=== PATIENT | male | born 1990 | race Caucasian/White ===

== ENCOUNTER 2017-11-04 22:12 | Emergency (ER) | payer OTHER, SELFPAY ==
[2017-11-04 23:16] LABS: Absolute Lymphocytes (CBC) 3.8 K/uL (0.7-4.9); Absolute Monocytes 1.2 K/uL (0.1-1.3); Absolute Neutrophil 5.9 K/uL (1.8-8.0); Basophils % 1.5 % (0-1.3); Eosinophils % 5.3 % (0-4.4); Hematocrit 39.8 % (39.6-49.0); Lymphocytes % 32.4 % (15.3-44.8); MCV 91.3 fL (80-100); MPV 8.6 fL (7.6-11.3); Monocytes % 10.6 % (3.3-12.3); RBC Red Blood Cell Count 4.36 M/uL (4.33-5.43)
[2017-11-04] MEDS ORDERED: NA CHLORIDE 0.9% 1,000 ML ONE (23:20)
[2017-11-04] MEDS ORDERED: ONDANSETRON 4 MG/2 ML VIAL ONE (23:20)
[2017-11-04] MEDS ORDERED: MORPHINE 4 MG/ML SYR ONE (23:20)
[2017-11-04 23:35] LABS: Potassium 3.6 mEq/L (3.6-5.0)
[2017-11-04 23:36] LABS: Glomerular Filtration Rate > 60 mL/min (>60)
[2017-11-04 23:42] LABS: Albumin 4.2 g/dL (3.2-5.5); Bilirubin Direct 0.1 mg/dL (0-0.2); Bilirubin Total 0.4 mg/dL (0.3-1.2); Protein, Total 7.3 g/dL (6.0-8.3)
[2017-11-05 00:07] LABS: Urine Blood NEGATIVE (NEG); Urine Glucose NEGATIVE (NEG); Urine Protein NEGATIVE (NEG); Urine Specific Gravity 1.015 (1.005-1.030)
[2017-11-05 00:11] LABS: Urine Bacteria <20 /HPF (NONE SEEN); Urine Culture Reflex Order NOT NEEDED; Urine RBC NONE SEEN /HPF (NONE SEEN)
--- NOTE | 2017-11-05 02:02 | EDPHYS ---
Physician Documentation [facility] Name: Louis Lagunas Jr Age: 27 yrs Sex: Male : 1990 Arrival Date: 11/04/2017 Time: 22:17 Bed 20 Private MD: ED Physician Viet Waite HPI: 11/04 22:36 This 27 yrs old Male presents to ER via Unassigned with complaints of cp Abdominal Pain. 22:36 The patient presents with abdominal pain right lower quadrant. Onset: The cp symptoms/episode began/occurred yesterday, and became worse today. The symptoms do not radiate. Associated signs and symptoms: Pertinent negatives: blood in stools, chest pain, constipation, diarrhea, fever, testicular pain, vomiting. Historical: - Allergies: 22:40 No Known Allergies; bp - Home Meds: 22:40 None [Active]; bp - PMHx: 22:40 None; bp - PSHx: 22:40 None; bp - Immunization history:: Adult Immunizations up to date. - Social history:: Smoking status: Patient uses tobacco products, smokes one-half pack cigarettes per day. ROS: 22:37 Eyes: Negative for injury, pain, redness, and discharge, ENT: Negative for injury, cp pain, and discharge. 22:37 Constitutional: Negative for body aches, chills, fever, poor PO intake. 22:37 Cardiovascular: Negative for chest pain, edema, palpitations. 22:37 Respiratory: Negative for cough, shortness of breath, wheezing. 22:37 Abdomen/GI: Positive for abdominal pain, of the right lower quadrant, Negative for vomiting, diarrhea, constipation, black/tarry stool, rectal bleeding. 22:37 Back: Negative for radiated pain. 22:37 : Negative for urinary symptoms, testicular pain 22:37 Skin: Negative for cellulitis, rash. 22:37 All other systems are negative. Exam: 22:45 Constitutional: The patient appears in no acute distress, alert, awake, non-toxic, well cp developed, well nourished. 22:45 Head/Face: Normocephalic, atraumatic. cp 22:45 Eyes: Pupils equal round and reactive to light, extra-ocular motions intact. Lids and cp lashes normal. Conjunctiva and sclera are non-icteric and not injected. Cornea within normal limits. Periorbital areas with no swelling, redness, or edema. ENT: Nares patent. No nasal discharge, no septal abnormalities noted. Tympanic membranes are normal and external auditory canals are clear. Oropharynx with no redness, swelling, or masses, exudates, or evidence of obstruction, uvula midline. Mucous membranes moist. Chest/axilla: Normal chest wall appearance and motion. Nontender with no deformity. No lesions are appreciated. Cardiovascular: Regular rate and rhythm with a normal S1 and S2. No gallops, murmurs, or rubs. Normal PMI, no JVD. No pulse deficits. Respiratory: Lungs have equal breath sounds bilaterally, clear to auscultation and percussion. No rales, rhonchi or wheezes noted. No increased work of breathing, no retractions or nasal flaring. 22:45 Abdomen/GI: Inspection: abdomen appears normal, Bowel sounds: active, all quadrants, Palpation: soft, in all quadrants, moderate abdominal tenderness, in the right lower quadrant, rebound tenderness, is not appreciated, voluntary guarding, is not appreciated, involuntary guarding, is not appreciated. 22:45 Back: pain, is absent, ROM is normal. 22:45 Skin: cellulitis, is not appreciated, no rash present. 11/05 01:58 : Male external genitalia: Circumcision noted. tenderness, of the right testicle is cp noted, of the epididymis area, Sexual behavior: the patient is sexually active, and reports a single partner. Vital Signs: 11/04 22:20 BP 152 / 86; Pulse 59; Resp 18; Temp 98; Pulse Ox 98% on R/A; Weight 97.52 kg; Height 5 bp ft. 10 in. (177.80 cm); 23:45 BP 130 / 75; Pulse 65; Resp 16; Pulse Ox 97% ; bp 22:20 Body Mass Index 30.85 (97.52 kg, 177.80 cm) bp MDM: 22:33 Patient medically screened. cp 23:00 Differential diagnosis: appendicitis, cholecystitis, Cholelithiasis, diverticulitis, cp gastritis, pancreatitis, Ureterolithiasis, urinary tract infection. 11/05 01:59 Data reviewed: vital signs, nurses notes, radiologic studies, vRad report of CT cp abdomen/pelvis negative for acute appendicitis. 11/04 22:39 Order name: Amylase, Serum; Complete Time: 01:32 cp 11/04 22:39 Order name: Basic Metabolic Panel; Complete Time: 01:32 cp 11/05 01:32 Interpretation: Normal except: GFR 78. cp 11/04 22:39 Order name: CBC with Diff; Complete Time: 23:35 cp 11/05 01:48 Interpretation: Normal except: WBC 11.6; HGB 13.5; EOSINOPHIL % 5.3; BASO% 1.5; EOSA cp 0.6. 11/04 22:39 Order name: Creatinine for Radiology; Complete Time: 01:32 cp 11/04 22:39 Order name: Hepatic Function; Complete Time: 01:32 cp 11/04 22:39 Order name: Lipase; Complete Time: 01:32 cp 11/04 22:39 Order name: Urine Microscopic Only; Complete Time: 01:32 cp 11/04 22:39 Order name: CT Abd/Pelvis - W/Contrast cp 11/04 22:47 Order name: Urine Dipstick--Ancillary (enter results); Complete Time: 01:32 em1 11/05 01:49 Interpretation: Reviewed. cp 11/04 22:39 Order name: IV Saline Lock; Complete Time: 22:44 cp 11/04 22:39 Order name: Labs collected and sent; Complete Time: 22:48 cp 11/04 22:39 Order name: Urine Dipstick-Ancillary (obtain specimen); Complete Time: 22:44 cp Administered Medications: 11/04 23:00 Drug: NS 0.9% 1000 ml Route: IV; Rate: 1 bolus; Site: right antecubital; bp 11/05 02:27 Follow up: IV Status: Completed infusion bp 11/04 23:00 Drug: Zofran 4 mg Route: IVP; Site: right antecubital; bp 23:14 Follow up: Response: Pain is decreased bp 23:00 Drug: morphine 2 mg Route: IVP; Site: right antecubital; bp 23:14 Follow up: Response: Pain is decreased bp 11/05 02:15 Drug: Rocephin - (cefTRIAXone) 1 grams Route: IVPB; Infused Over: 30 mins; Site: right bp antecubital; 02:27 Follow up: IV Status: Completed infusion bp 02:15 Drug: Zithromax 1 grams Route: PO; bp 02:27 Follow up: Response: Medication administered at discharge. bp 02:15 Drug: TORadol 30 mg Route: IVP; Site: right antecubital; bp 02:27 Follow up: Response: Medication administered at discharge. bp Disposition: 04:30 Co-signature as Attending Physician, Viet Waite MD I agree with the assessment and tw4 plan of care. Disposition: 11/05/17 02:02 Discharged to Home. Impression: Lower abdominal pain, unspecified, Epididymitis - Right. - Condition is Stable. - Discharge Instructions: Abdominal Pain, Adult, Epididymitis. - Prescriptions for Naprosyn 500 mg Oral Tablet - take 1 tablet by ORAL route 2 times per day take with food; 30 tablet. Doxycycline Hyclate 100 mg Oral Tablet - take 1 tablet by ORAL route every 12 hours; 20 tablet. Tramadol 50 mg Oral Tablet - take 1 tablet by ORAL route every 8 hours as needed; 12 tablet. - Medication Reconciliation Form, Thank You Letter, Antibiotic Education, Prescription Opioid Use, Work release form form. - Follow up: Amish Salmeron MD; When: 2 - 3 days; Reason: if pain continues right lower abdomen. - Problem is new. - Symptoms have improved. Signatures: Dispatcher [employer] EDMS Amadou Mead PA PA cp Nico Garibay, ARTURO RN bp Viet Waite MD MD tw4 Corrections: (The following items were deleted from the chart) 01:48 [id number] 23:35 Normal except: WBC 11.6; HGB 13.5; EOSINOPHIL % 5.3; BASO% 1.5. cp cp
--- NOTE | 2017-11-05 02:02 | ER ---
Nurse's Notes [facility] Name: Louis Lagunas Jr Age: 27 yrs Sex: Male : 1990 Arrival Date: 11/04/2017 Time: 22:17 Bed 20 Private MD: Diagnosis: Lower abdominal pain, unspecified;Epididymitis-Right Presentation: 11/04 22:20 Presenting complaint: Patient states: IT STARTED HURTING BY MY BELLYBUTTON YESTERDAY bp AND THEN MOVED OVER TO THE RIGHT TODAY. Transition of care: patient was not received from another setting of care. Onset of symptoms was November 03, 2017. Care prior to arrival: None. 22:20 Method Of Arrival: Ambulatory bp 22:20 Acuity: POOL 3 bp Triage Assessment: 22:20 General: Appears distressed, uncomfortable, Behavior is calm, cooperative, appropriate bp for age. Pain: Complains of pain in umbilical area Pain radiates to right lower quadrant. EENT: No deficits noted. Neuro: Level of Consciousness is awake, alert, obeys commands, Oriented to person, place, time, situation, Appropriate for age. Cardiovascular: No deficits noted. Respiratory: Airway is patent Respiratory effort is even, unlabored, Respiratory pattern is regular, symmetrical. GI: Abdomen is non-distended, Abd is soft X 4 quads Abdomen is tender to palpation in umbilical area and right lower quadrant Abdomen has rebound tenderness in right lower quadrant Reports nausea. : No signs and/or symptoms were reported regarding the genitourinary system. Derm: No deficits noted. Musculoskeletal: Circulation, motion, and sensation intact. Range of motion: intact in all extremities. Historical: - Allergies: 22:40 No Known Allergies; bp - Home Meds: 22:40 None [Active]; bp - PMHx: 22:40 None; bp - PSHx: 22:40 None; bp - Immunization history:: Adult Immunizations up to date. - Social history:: Smoking status: Patient uses tobacco products, smokes one-half pack cigarettes per day. Screenin:47 Abuse screen: Denies threats or abuse. Denies injuries from another. Nutritional bp screening: No deficits noted. Tuberculosis screening: No symptoms or risk factors identified. Fall Risk None identified. Assessment: 22:20 GI: Bowel sounds present X 4 quads. bp 22:46 Reassessment: PT DRINKING PO CONTRAST. PT STATES LAST PO INTAKE 2029. bp 23:00 Reassessment: PO CONTRAST COMPLETED, CT NOTIFIED. bp 11/05 01:00 Reassessment: VS STABLE. AWAITING CT RESULTS. bp 02:28 Reassessment: PT D/C HOME AMBULATORY, DX WITH EPIDIDYMITIS. bp Vital Signs: 11/04 22:20 BP 152 / 86; Pulse 59; Resp 18; Temp 98; Pulse Ox 98% on R/A; Weight 97.52 kg; Height 5 bp ft. 10 in. (177.80 cm); 23:45 BP 130 / 75; Pulse 65; Resp 16; Pulse Ox 97% ; bp 22:20 Body Mass Index 30.85 (97.52 kg, 177.80 cm) bp ED Course: 22:17 Patient arrived in ED. al2 22:20 Arm band placed on. bp 22:23 Nico Garibay, ARTURO is Primary Nurse. bp 22:32 Amadou Mead PA is PHCP. cp 22:32 Viet Waite MD is Attending Physician. cp 22:40 Triage completed. bp 22:40 Inserted saline lock: 18 gauge in right antecubital area, using aseptic technique. bp Blood collected. 22:43 Urine collected: clean catch specimen, clear. dh3 22:47 Patient has correct armband on for positive identification. Placed in gown. Bed in low bp position. Call light in reach. Side rails up X2. 22:49 Oral contrast given. jg1 11/05 01:21 CT Abd/Pelvis - W/Contrast In Process Unspecified. EDMS 02:01 Amish Salmeron MD is Referral Physician. cp 02:28 No provider procedures requiring assistance completed. IV discontinued, intact, bp bleeding controlled, No redness/swelling at site. Pressure dressing applied. Administered Medications: 11/04 23:00 Drug: NS 0.9% 1000 ml Route: IV; Rate: 1 bolus; Site: right antecubital; bp 11/05 02:27 Follow up: IV Status: Completed infusion bp 11/04 23:00 Drug: Zofran 4 mg Route: IVP; Site: right antecubital; bp 23:14 Follow up: Response: Pain is decreased bp 23:00 Drug: morphine 2 mg Route: IVP; Site: right antecubital; bp 23:14 Follow up: Response: Pain is decreased bp 04/07 02:15 Drug: Rocephin - (cefTRIAXone) 1 grams Route: IVPB; Infused Over: 30 mins; Site: right bp antecubital; 02:27 Follow up: IV Status: Completed infusion bp 02:15 Drug: Zithromax 1 grams Route: PO; bp 02:27 Follow up: Response: Medication administered at discharge. bp 02:15 Drug: TORadol 30 mg Route: IVP; Site: right antecubital; bp 02:27 Follow up: Response: Medication administered at discharge. bp Outcome: 02:02 Discharge ordered by MD. cp 02:46 Discharged to home bp 02:46 Condition: stable 02:46 Discharge instructions given to patient, Instructed on discharge instructions, follow up and referral plans. medication usage, Demonstrated understanding of instructions, follow-up care, medications, Prescriptions given X 3. 02:51 Patient left the ED. bp Signatures: Dispatcher [employer] EDIndiana King jg1 Amadou Mead PA PA cp Herrera, Deanna 3 Nico Garibay RN RN bp Nhung Braga2 Corrections: (The following items were deleted from the chart) 02:29 04/06 23:51 Reassessment: bp bp
[2017-11-05] MEDS ORDERED: KETOROLAC 30 MG/ML INJ ONE (02:35)
[2017-11-05] MEDS ORDERED: CEFTRIAXONE/SWI 1gm 1 GM/10 ML SYR ONE (02:35)
[2017-11-05] MEDS ORDERED: AZITHROMYCIN 250 MG TAB ONE (02:35)
--- NOTE | 2017-11-05 11:25 | RAD REPORT ---
EXAM DESCRIPTION: CTAbdomen Pelvis W Contrast - 11/05/2017 6:47 am CLINICAL HISTORY: Abdominal pain. COMPARISON: None. TECHNIQUE: Biphasic CT imaging of the abdomen and pelvis was performed with 100 ml non-ionic IV cont rast. All CT scans are performed using dose optimization technique as appropriate and may include automated exposure control or mA/KV adjustment according to patient size. FINDINGS: The lung bases are clear. The liver demonstrates diffuse fatty infiltration. The spleen, pancreas, adrenal glands and kidneys a re within normal limits. No bowel obstruction, free air, free fluid or abscess. The appendix is normal. No evidence of signi ficant lymphadenopathy. No suspicious bony findings. Urinary bladder wall thickening is seen. IMPRESSION: Thickening of the urinary bladder wall could indicate cystitis. Diffuse fatty liver.
== END 2017-11-05 02:51 | disposition home or self-care (01) ==
LOC: ER 22:12
DX: N45.1 Epididymitis (principal); F17.210 Nicotine dependence, cigarettes, uncomplicated
CPT/HCPCS: 36415; 74177; 80048; 80076; 81003; 81015; 82150; 83690; 85025; 96361; 96374; 96375; 99284; J0696; J2405; J7030; Q9967

== ENCOUNTER 2018-07-25 09:25 | Emergency (ER) | payer SELFPAY ==
[2018-07-25] MEDS ORDERED: NA CHLORIDE 0.9% 1,000 ML ONE (10:10)
[2018-07-25] MEDS ORDERED: ONDANSETRON 4 MG/2 ML VIAL ONE (10:10)
[2018-07-25] MEDS ORDERED: KETOROLAC 30 MG/ML INJ ONE (10:10)
[2018-07-25 10:23] LABS: Absolute Lymphocytes (CBC) 2.3 K/uL (0.7-4.9); Absolute Monocytes 0.9 K/uL (0.1-1.3); Absolute Neutrophil 6.6 K/uL (1.8-8.0); Eosinophils % 4.9 % (0-4.4); Hematocrit 44.7 % (39.6-49.0); MCH 31.7 pg (27.0-35.0); MCV 91.1 fL (80-100); Monocytes % 8.4 % (3.3-12.3); RBC Red Blood Cell Count 4.91 M/uL (4.33-5.43)
--- NOTE | 2018-07-25 10:34 | RAD REPORT ---
EXAM DESCRIPTION: CT - Stone Protocol - 07/25/2018 10:19 am CLINICAL HISTORY: Abdominal pain. Right flank pain COMPARISON: October 2017 TECHNIQUE: Computed axial tomography of the abdomen pelvis was obtained without oral or IV contrast. Lack of IV and oral contrast limits evaluation of solid organs, bowel, and vessels. Coronal reformat roosevelt images were obtained and reviewed. All CT scans are performed using dose optimization technique as appropriate and may include automated exposure control or mA/KV adjustment according to patient size. FINDINGS: A renal calculus is not seen. An ureteral calculus is not noted. A bladder calculus is not present. The liver, spleen, pancreas and adrenals appear grossly normal There is no evidence of diverticulitis. The appendix appears normal Small right inguinal hernia suspected IMPRESSION: Negative for a genitourinary calculus Small right inguinal hernia is suspected
[2018-07-25 10:39] LABS: ALT/SGPT 33 U/L (12-78); AST/SGOT 15 U/L (15-37); Albumin 3.9 g/dL (3.4-5.0); Alkaline Phosphatase 83 U/L (45-117); BUN Blood Urea Nitrogen 14 mg/dL (7-18); Bicarbonate 26 mmol/L (21-32); Bilirubin Direct < 0.1 mg/dL (0-0.2); Bilirubin Total 0.3 mg/dL (0.2-1.0); Glucose Level 97 mg/dL (74-106); Lipase 149 U/L (73-393); Potassium 4.3 mmol/L (3.5-5.1); Protein, Total 7.8 g/dL (6.4-8.2); Sodium Level 139 mmol/L (136-145)
--- NOTE | 2018-07-25 11:31 | RAD REPORT ---
EXAM DESCRIPTION: US - Scrotum Testicles - 07/25/2018 11:20 am CLINICAL HISTORY: Scrotal pain COMPARISON: None FINDINGS: Right testicle measures 4.6 x 2.1 x 3.4 centimeters. Echotexture is homogeneous. Normal bl ood flow Left testicle measures 4.7 x 2.4 x 3.2 centimeters. Echotexture is homogeneous. Normal blood flow The epididymides are normal in size and echotexture. Normal blood flow is seen. A 4 millimeter left s permatocele IMPRESSION: A 4 millimeter left spermatocele. Otherwise unremarkable exam
--- NOTE | 2018-07-25 13:13 | ER ---
Nurse's Notes [facility] Name: Louis Lagunas Jr Age: 28 yrs Sex: Male : 1990 Arrival Date: 07/25/2018 Time: 09:28 Bed 15 Private MD: Diagnosis: Right testicle pain;Inguinal hernia-right Presentation: 07/25 09:42 Presenting complaint: Patient states: right testicular pain, right flank, right back sv pain started 2 days ago. Transition of care: patient was not received from another setting of care. Onset of symptoms was July 23, 2018. Risk Assessment: Do you want to hurt yourself or someone else? Patient reports no desire to harm self or others. Initial Sepsis Screen: Does the patient meet any 2 criteria? No. Patient's initial sepsis screen is negative. Does the patient have a suspected source of infection? No. Patient's initial sepsis screen is negative. Care prior to arrival: None. 09:42 Method Of Arrival: Ambulatory sv 09:42 Acuity: POOL 3 sv Historical: - Allergies: 09:50 No Known Allergies; sv - Home Meds: 09:50 None [Active]; sv - PMHx: 09:50 None; sv - PSHx: 09:50 right leg; sv - Immunization history:: Flu vaccine is not up to date. - Social history:: Smoking status: Patient uses tobacco products, smokes one-half pack cigarettes per day. - Ebola Screening: : No symptoms or risks identified at this time. Screenin:10 Abuse screen: Denies threats or abuse. Denies injuries from another. Nutritional sv screening: No deficits noted. Tuberculosis screening: No symptoms or risk factors identified. Fall Risk None identified. Vital Signs: 09:50 BP 148 / 93; Pulse 71; Resp 20; Temp 98; Pulse Ox 97% ; Weight 95.25 kg; Height 5 ft. sv 10 in. (177.80 cm); Pain 8/10; 12:41 BP 125 / 65; Pulse 70; Resp 16; Pulse Ox 99% ; sv 13:32 BP 122 / 68; Pulse 72; Resp 18; Pulse Ox 99% ; sv 09:50 Body Mass Index 30.13 (95.25 kg, 177.80 cm) sv ED Course: 09:28 Patient arrived in ED. as 09:41 Page, Amadou, PA is PHCP. cp 09:42 Mary Ellen Kerr MD is Attending Physician. cp 09:42 Arm band placed on Patient placed in an exam room, on a stretcher. sv 09:48 Alexandra Toscano, ARTURO is Primary Nurse. sv 09:49 Triage completed. sv 10:10 Patient has correct armband on for positive identification. Placed in gown. Bed in low sv position. Pulse ox on. NIBP on. Door closed. Head of bed elevated. 10:10 Initial lab(s) drawn, by me, sent to lab. Inserted saline lock: 20 gauge in left sv antecubital area, using aseptic technique. Blood collected. Flushed left antecubital with 5 ml normal saline. 10:19 CT Stone Protocol In Process Unspecified. EDMS 10:20 CT completed. Patient tolerated procedure well. Patient moved back from CT. bq 11:18 Ultrasound completed. Patient tolerated well. sg3 11:20 US Scrotum Testicles In Process Unspecified. EDMS 13:10 Wendy Bahena MD is Referral Physician. cp 13:31 No provider procedures requiring assistance completed. IV discontinued, intact, sv bleeding controlled, No redness/swelling at site. Pressure dressing applied. Administered Medications: 10:10 Drug: NS 0.9% 1000 ml Route: IV; Rate: 1 bolus; Site: left antecubital; sv 11:00 Follow up: Response: No adverse reaction; IV Status: Completed infusion; IV Intake: sv 1000ml 10:10 Drug: Zofran 4 mg Route: IVP; Site: left antecubital; sv 10:30 Follow up: Response: No adverse reaction sv 10:11 Drug: TORadol 30 mg Route: IVP; Site: left antecubital; sv 10:30 Follow up: Response: No adverse reaction sv 10:19 CANCELLED (Duplicate Order): TORadol 30 mg IM once sv 13:29 Drug: Rocephin - (cefTRIAXone) 1 grams Route: IVPB; Infused Over: 30 mins; Site: left sv antecubital; 13:31 Follow up: Response: No adverse reaction; IV Status: Completed infusion; IV Intake: sv 10ml ; given IVP per pharmacy 13:31 Drug: Zithromax 1 grams Route: PO; sv 13:31 Follow up: Response: Medication administered at discharge. sv Intake: 11:00 IV: 1000ml; Total: 1000ml. sv 13:31 IV: 10ml; Total: 1010ml. sv Outcome: 13:12 Discharge ordered by MD. cp 13:32 Discharged to home ambulatory. sv 13:32 Condition: stable 13:32 Discharge instructions given to patient, Instructed on discharge instructions, follow up and referral plans. medication usage, Demonstrated understanding of instructions, follow-up care, medications, Prescriptions given X 3. 13:33 Patient left the ED. sv Signatures: Dispatcher [employer] Alexandra Marcano RN RN Ludivina Strauss Amelia as Page, Corey, PA PA april Payne, Chantel sg3
--- NOTE | 2018-07-25 13:13 | EDPHYS ---
Physician Documentation [facility] Name: Louis Lagunas Jr Age: 28 yrs Sex: Male : 1990 Arrival Date: 07/25/2018 Time: 09:28 Bed 15 Private MD: ED Physician Mary Ellen Kerr HPI: 07/25 10:00 This 28 yrs old Male presents to ER via Ambulatory with complaints of cp Testicular Pain. 10:00 The patient presents with scrotal pain, of the right side. Onset: The symptoms/episode cp began/occurred 2 day(s) ago. 10:00 Associated signs and symptoms: Pertinent negatives: constipation, diarrhea, dysuria, cp fever, vomiting, penile discharge. 10:00 Severity of symptoms: in the emergency department the symptoms are unchanged, despite cp home interventions. Historical: - Allergies: 09:50 No Known Allergies; sv - Home Meds: 09:50 None [Active]; sv - PMHx: 09:50 None; sv - PSHx: 09:50 right leg; sv - Immunization history:: Flu vaccine is not up to date. - Social history:: Smoking status: Patient uses tobacco products, smokes one-half pack cigarettes per day. - Ebola Screening: : No symptoms or risks identified at this time. ROS: 10:05 Constitutional: Negative for body aches, chills, fever, poor PO intake. cp 10:05 Eyes: Negative for injury, pain, redness, and discharge. cp 10:05 ENT: Negative for drainage from ear(s), ear pain, sore throat, difficulty swallowing, difficulty handling secretions. 10:05 Cardiovascular: Negative for chest pain. 10:05 Respiratory: Negative for cough, shortness of breath, wheezing. 10:05 Abdomen/GI: Positive for abdominal pain, of the right lower quadrant, Negative for vomiting, diarrhea, constipation, anorexia, black/tarry stool, rectal bleeding, bowel incontinence. 10:05 Back: Positive for radiated pain, of the right low back, Negative for injury or acute deformity, decreased range of motion. 10:05 : Positive for testicular pain Negative for urinary frequency, hematuria, difficulty urinating, bladder incontinence. 10:05 Skin: Negative for cellulitis, rash. 10:05 Neuro: Negative for altered mental status, dizziness, headache, weakness. 10:05 All other systems are negative. Exam: 10:10 Constitutional: The patient appears in no acute distress, alert, awake, non-toxic, well cp developed, well nourished, uncomfortable. 10:10 Head/Face: Normocephalic, atraumatic. cp 10:10 Eyes: Periorbital structures: appear normal, Conjunctiva: normal, no exudate, no injection, Sclera: no appreciated abnormality, Lids and lashes: appear normal, bilaterally. 10:10 ENT: External ear(s): are unremarkable, Nose: is normal, Mouth: Lips: moist, Oral mucosa: pink and intact, moist, Posterior pharynx: is normal, airway is patent, no erythema, no exudate. 10:10 Neck: ROM/movement: is normal, is supple, without pain, no range of motions limitations, no meningismus, no nuchal rigidity. 10:10 Chest/axilla: Inspection: normal, Palpation: is normal, no crepitus, no tenderness. 10:10 Cardiovascular: Rate: normal, Rhythm: regular, Edema: is not appreciated, JVD: is not appreciated. 10:10 Respiratory: the patient does not display signs of respiratory distress, Respirations: normal, no use of accessory muscles, no retractions, no splinting, no tachypnea, labored breathing, is not present, Breath sounds: are clear throughout, no decreased breath sounds, no stridor, no wheezing. 10:10 Abdomen/GI: Inspection: abdomen appears normal, Bowel sounds: active, all quadrants, Palpation: soft, in all quadrants, moderate abdominal tenderness, in the right lower quadrant, rebound tenderness, is not appreciated, involuntary guarding, is not appreciated. 10:10 : Male external genitalia: Circumcision noted. swelling: of the right testicle is noted, that is mild, tenderness, of the right testicle is noted, that is moderate. 10:10 Skin: cellulitis, is not appreciated, no rash present. 10:10 Neuro: Orientation: to person, place \T\ time. Mentation: is normal, Cerebellar function: is grossly normal, Motor: is normal. Vital Signs: 09:50 BP 148 / 93; Pulse 71; Resp 20; Temp 98; Pulse Ox 97% ; Weight 95.25 kg; Height 5 ft. sv 10 in. (177.80 cm); Pain 8/10; 12:41 BP 125 / 65; Pulse 70; Resp 16; Pulse Ox 99% ; sv 13:32 BP 122 / 68; Pulse 72; Resp 18; Pulse Ox 99% ; sv 09:50 Body Mass Index 30.13 (95.25 kg, 177.80 cm) sv MDM: 09:43 Patient medically screened. cp 10:00 Differential diagnosis: appendicitis, UTI, urinary retention, prostatitis, urethritis, cp testicular torsion, epididymitis, orchitis. 13:10 Data reviewed: vital signs, nurses notes, lab test result(s), radiologic studies, CT cp scan, ultrasound. 13:10 Counseling: I had a detailed discussion with the patient and/or guardian regarding: the cp historical points, exam findings, and any diagnostic results supporting the discharge/admit diagnosis, lab results, radiology results, the need for outpatient follow up, a urologist, to return to the emergency department if symptoms worsen or persist or if there are any questions or concerns that arise at home. Response to treatment: the patient's symptoms have markedly improved after treatment, and as a result, I will discharge patient. 07/25 09:52 Order name: Basic Metabolic Panel; Complete Time: 11:08 07/25 11:08 Interpretation: Normal except: GFR 79. 07/25 09:52 Order name: CBC with Diff; Complete Time: 11:08 07/25 11:08 Interpretation: Normal except: EOSINOPHIL % 4.9. 07/25 09:52 Order name: Creatinine for Radiology; Complete Time: 11:08 07/25 09:52 Order name: Hepatic Function; Complete Time: 11:08 07/25 11:08 Interpretation: Normal except: GLOB 3.9; A/G 1.0. 07/25 09:52 Order name: Lipase; Complete Time: 11:08 07/25 09:52 Order name: Urine Microscopic Only 07/25 09:52 Order name: CT Stone Protocol; Complete Time: 11:08 07/25 10:01 Order name: US Scrotum Testicles; Complete Time: 11:37 07/25 11:44 Order name: GC (GONORR/CHLAMYDIA) Probe 07/25 12:27 Order name: Urine Dipstick--Ancillary (enter results) 07/25 09:52 Order name: IV Saline Lock; Complete Time: 11:38 cp 07/25 09:52 Order name: Labs collected and sent; Complete Time: 11:38 cp 07/25 09:52 Order name: Urine Dipstick-Ancillary (obtain specimen); Complete Time: 12:38 cp Administered Medications: 10:10 Drug: NS 0.9% 1000 ml Route: IV; Rate: 1 bolus; Site: left antecubital; sv 11:00 Follow up: Response: No adverse reaction; IV Status: Completed infusion; IV Intake: sv 1000ml 10:10 Drug: Zofran 4 mg Route: IVP; Site: left antecubital; sv 10:30 Follow up: Response: No adverse reaction sv 10:11 Drug: TORadol 30 mg Route: IVP; Site: left antecubital; sv 10:30 Follow up: Response: No adverse reaction sv 10:19 CANCELLED (Duplicate Order): TORadol 30 mg IM once sv 13:29 Drug: Rocephin - (cefTRIAXone) 1 grams Route: IVPB; Infused Over: 30 mins; Site: left sv antecubital; 13:31 Follow up: Response: No adverse reaction; IV Status: Completed infusion; IV Intake: sv 10ml ; given IVP per pharmacy 13:31 Drug: Zithromax 1 grams Route: PO; sv 13:31 Follow up: Response: Medication administered at discharge. sv Disposition: 17:40 Co-signature as Attending Physician, Mary Ellen Kerr MD. ma2 Disposition: 07/25/18 13:12 Discharged to Home. Impression: Right testicle pain, Inguinal hernia - right. - Condition is Stable. - Discharge Instructions: Epididymitis, Inguinal Hernia, Adult. - Prescriptions for Anaprox DS 550 mg Oral Tablet - take 1 tablet by ORAL route every 12 hours As needed; 20 tablet. Doxycycline Hyclate 100 mg Oral Tablet - take 1 tablet by ORAL route every 12 hours; 20 tablet. Tramadol 50 mg Oral Tablet - take 1 tablet by ORAL route every 8 hours as needed; 20 tablet. - Medication Reconciliation Form, Thank You Letter, Antibiotic Education, Prescription Opioid Use form. - Follow up: Wendy Bahena MD; When: 1 week; Reason: pain continues. - Problem is new. - Symptoms have improved. Signatures: [facility] Alexandra Marcnao RN RN sv Amadou Mead PA PA cp Mary Ellen Kerr MD MD ma2 Corrections: (The following items were deleted from the chart) 10:19 09:52 TORadol 30 mg IM once ordered. cp 13:33 13:12 07/25/2018 13:12 Discharged to Home. Impression: Right testicle pain; Inguinal sv hernia - right. Condition is Stable. Forms are Medication Reconciliation Form, Thank You Letter, Antibiotic Education, Prescription Opioid Use. Follow up: Wendy Bahena; When: 1 week; Reason: pain continues. Problem is new. Symptoms have improved. cp
[2018-07-25 13:16] LABS: Urine Amorphous Sediment 2+ /HPF (NONE SEEN); Urine Bacteria <20 /HPF (NONE SEEN); Urine Culture Reflex Order NOT NEEDED; Urine RBC NONE SEEN /HPF (NONE SEEN)
[2018-07-25] MEDS ORDERED: AZITHROMYCIN 250 MG TAB ONE (13:26)
[2018-07-25] MEDS ORDERED: CEFTRIAXONE/SWI 1gm 1 GM/10 ML SYR ONE (13:26)
[2018-07-25 21:31] LABS: Urine Blood NEGATIVE (NEG); Urine Glucose NEGATIVE (NEG); Urine Specific Gravity 1.025 (1.005-1.030); Urine pH 5.5 (5.0-7.0)
[2018-07-25 21:32] LABS: Urine Protein NEGATIVE (NEG)
== END 2018-07-25 13:33 | disposition home or self-care (01) ==
LOC: ER 09:25
DX: K40.90 Unilateral inguinal hernia, without obstruction or gangrene, not specified as recurrent (principal); F17.210 Nicotine dependence, cigarettes, uncomplicated
CPT/HCPCS: 36415; 74176; 76377; 76870; 80048; 80076; 81003; 81015; 83690; 85025; 87490; 87590; 96361; 96374; 96375; 99284; J0696; J2405; J7030

== ENCOUNTER 2018-09-14 23:38 | Emergency (ER) | payer OTHER ==
--- NOTE | 2018-09-15 02:20 | ER ---
Nurse's Notes [facility] Name: Louis Lagunas Jr Age: 28 yrs Sex: Male : 1990 Arrival Date: 09/14/2018 Time: 23:43 Bed 25 Private MD: Diagnosis: Bronchitis, not specified as acute or chronic Presentation: 09/15 00:04 Presenting complaint: Patient states: he has been fighting flu like symptoms since bb Tuesday with body aches, chills, fever, difficulty breating has tried a bunch of OTC medications but it seems to be getting worse. Transition of care: patient was not received from another setting of care. Onset of symptoms was September 10, 2018. Risk Assessment: Do you want to hurt yourself or someone else? Patient reports no desire to harm self or others. Initial Sepsis Screen: Does the patient meet any 2 criteria? No. Patient's initial sepsis screen is negative. Does the patient have a suspected source of infection? No. Patient's initial sepsis screen is negative. Care prior to arrival: None. 00:04 Method Of Arrival: Ambulatory bb 00:04 Acuity: POOL 3 bb Historical: - Allergies: 00:06 No Known Allergies; bb - Home Meds: 00:06 None [Active]; bb - PMHx: 00:06 None; bb - PSHx: 00:06 right leg; bb - Immunization history:: Adult Immunizations up to date, Flu vaccine is not up to date. - Social history:: Smoking status: Patient uses tobacco products, smokes one-half pack cigarettes per day, Patient/guardian denies using alcohol, street drugs. - Ebola Screening: : No symptoms or risks identified at this time. Screenin:23 Abuse screen: Denies threats or abuse. Denies injuries from another. Nutritional rv screening: No deficits noted. Tuberculosis screening: No symptoms or risk factors identified. Fall Risk None identified. Assessment: 00:21 General: Appears in no apparent distress. comfortable, Behavior is calm, cooperative. rv Pain: Denies pain. Neuro: Level of Consciousness is awake, alert, obeys commands, Oriented to person, place, time, situation. Cardiovascular: Capillary refill < 3 seconds. Respiratory: Airway is patent. GI: No signs and/or symptoms were reported involving the gastrointestinal system. : No signs and/or symptoms were reported regarding the genitourinary system. EENT: No signs and/or symptoms were reported regarding the EENT system. Derm: Skin is intact. Musculoskeletal: No signs and/or symptoms reported regarding the musculoskeletal system. Vital Signs: 00:06 BP 150 / 93; Pulse 100; Resp 18 S; Temp 98.4(O); Pulse Ox 97% on R/A; Weight 95.25 kg bb (R); Height 5 ft. 10 in. (177.80 cm) (R); Pain 5/10; 02:24 BP 138 / 86; Pulse 89; Resp 18 S; Pulse Ox 97% on R/A; rv 00:06 Body Mass Index 30.13 (95.25 kg, 177.80 cm) ED Course: 09/14 23:43 Patient arrived in ED. es 09/15 00:06 Triage completed. bb 00:06 Arm band placed on Patient placed in an exam room, on a stretcher, on pulse oximetry. bb flu swab sent. 00:08 Viet Waite MD is Attending Physician. tw4 00:08 Flu and/or RSV swab sent to lab. bb 00:23 Patient has correct armband on for positive identification. Bed in low position. Call rv light in reach. Side rails up X 1. Pulse ox on. NIBP on. 00:27 Patient moved to radiology via wheelchair. kw 00:27 X-ray completed. Portable x-ray completed in exam room. Patient tolerated procedure kw well. 00:27 Patient moved back from radiology. kw 00:33 XRAY Chest Pa And Lat (2 Views) In Process Unspecified. EDMS 02:25 No provider procedures requiring assistance completed. Patient did not have IV access rv during this emergency room visit. Administered Medications: No medications were administered Outcome: 02:19 Discharge ordered by . tw4 02:25 Discharged to home ambulatory. rv 02:25 Condition: good 02:25 Discharge instructions given to patient, Instructed on discharge instructions, follow up and referral plans. medication usage, Demonstrated understanding of instructions, follow-up care, medications, Prescriptions given X 3. 02:25 Patient left the ED. rv Signatures: Dispatcher [employer] EDIL Lidia Kirkland Brenda, ARTURO RN bb Julieta Franklin kw Viet Waite MD MD tw4 Max Chong, RN RN rv
--- NOTE | 2018-09-15 02:20 | EDPHYS ---
Physician Documentation [facility] Name: Louis Lagunas Jr Age: 28 yrs Sex: Male : 1990 Arrival Date: 09/14/2018 Time: 23:43 Bed 25 Private MD: ED Physician Viet Waite HPI: 09/15 06:53 This 28 yrs old Male presents to ER via Ambulatory with complaints of Flu tw4 Symptoms. 06:53 The patient or guardian reports cough, that is constant. Onset: The symptoms/episode tw4 began/occurred yesterday. Modifying factors: The symptoms are alleviated by nothing. the symptoms are aggravated by nothing. Associated signs and symptoms: Pertinent positives: fever, body aches. Severity of symptoms: At their worst the symptoms were moderate in the emergency department the symptoms are unchanged. The patient has not experienced similar symptoms in the past. Historical: - Allergies: 00:06 No Known Allergies; bb - Home Meds: 00:06 None [Active]; bb - PMHx: 00:06 None; bb - PSHx: 00:06 right leg; bb - Immunization history:: Adult Immunizations up to date, Flu vaccine is not up to date. - Social history:: Smoking status: Patient uses tobacco products, smokes one-half pack cigarettes per day, Patient/guardian denies using alcohol, street drugs. - Ebola Screening: : No symptoms or risks identified at this time. ROS: 06:53 Eyes: Negative for injury, pain, redness, and discharge. tw4 06:53 Cardiovascular: Negative for chest pain, palpitations, and edema, Respiratory: Negative for shortness of breath, cough, wheezing, and pleuritic chest pain, Abdomen/GI: Negative for abdominal pain, nausea, vomiting, diarrhea, and constipation, Back: Negative for injury and pain, MS/Extremity: Negative for injury and deformity, Skin: Negative for injury, rash, and discoloration, Neuro: Negative for headache, weakness, numbness, tingling, and seizure. 06:53 Constitutional: Positive for body aches, fatigue, fever, malaise. Exam: 06:53 Constitutional: This is a well developed, well nourished patient who is awake, alert, tw4 and in no acute distress. Head/Face: Normocephalic, atraumatic. Chest/axilla: Normal chest wall appearance and motion. Nontender with no deformity. No lesions are appreciated. Cardiovascular: Regular rate and rhythm with a normal S1 and S2. No gallops, murmurs, or rubs. Normal PMI, no JVD. No pulse deficits. Respiratory: Lungs have equal breath sounds bilaterally, clear to auscultation and percussion. No rales, rhonchi or wheezes noted. No increased work of breathing, no retractions or nasal flaring. Abdomen/GI: Soft, non-tender, with normal bowel sounds. No distension or tympany. No guarding or rebound. No evidence of tenderness throughout. MS/ Extremity: Pulses equal, no cyanosis. Neurovascular intact. Full, normal range of motion. Neuro: Awake and alert, GCS 15, oriented to person, place, time, and situation. Cranial nerves II-XII grossly intact. Motor strength 5/5 in all extremities. Sensory grossly intact. Cerebellar exam normal. Normal gait. Vital Signs: 00:06 BP 150 / 93; Pulse 100; Resp 18 S; Temp 98.4(O); Pulse Ox 97% on R/A; Weight 95.25 kg bb (R); Height 5 ft. 10 in. (177.80 cm) (R); Pain 5/10; 02:24 BP 138 / 86; Pulse 89; Resp 18 S; Pulse Ox 97% on R/A; rv 00:06 Body Mass Index 30.13 (95.25 kg, 177.80 cm) bb MDM: 00:08 Patient medically screened. tw4 06:53 Differential diagnosis: obstructed airway, flu, URI. Data reviewed: vital signs, nurses tw4 notes. Counseling: I had a detailed discussion with the patient and/or guardian regarding: lab results. Special discussion: I discussed with the patient/guardian in detail that at this point there is no indication for admission to the hospital. It is understood, however, that if the symptoms persist or worsen the patient needs to return immediately for re-evaluation. 09/15 00:08 Order name: Flu bb 09/15 00:09 Order name: XRAY Chest Pa And Lat (2 Views) bb Administered Medications: No medications were administered Disposition: 09/15/18 02:19 Discharged to Home. Impression: Bronchitis, not specified as acute or chronic. - Condition is Stable. - Discharge Instructions: Acute Bronchitis, Adult. - Prescriptions for Tessalon Perles 100 mg Oral Capsule - take 1 capsule by ORAL route every 8 hours As needed; 15 capsule. Albuterol Sulfate 90 mcg/actuation - inhale 1-2 puff by INHALATION route every 4-6 hours; 1 Inhaler. Guaifenesin AC 10- 100 mg/5 mL Oral Liquid - take 10 milliliter by ORAL route every 4 hours As needed; 240 milliliter. - Medication Reconciliation Form, Thank You Letter, Antibiotic Education, Prescription Opioid Use, Work release form form. - Follow up: Private Physician; When: Upon discharge from the Emergency Department; Reason: If symptoms return, Recheck today's complaints, Continuance of care. - Problem is new. - Symptoms are unchanged. Signatures: Dispatcher [employer] EDPatricia Bernal, RN RN Viet Delgado MD MD tw4 Max Chong RN RN rv Corrections: (The following items were deleted from the chart) 02:25 02:19 09/15/2018 02:19 Discharged to Home. Impression: Bronchitis, not specified as rv acute or chronic. Condition is Stable. Forms are Medication Reconciliation Form, Thank You Letter, Antibiotic Education, Prescription Opioid Use. Follow up: Private Physician; When: Upon discharge from the Emergency Department; Reason: If symptoms return, Recheck today's complaints, Continuance of care. Problem is new. Symptoms are unchanged. tw4
--- NOTE | 2018-09-15 09:09 | RAD REPORT ---
EXAM DESCRIPTION: RAD - Chest Pa And Lat (2 Views) - 09/15/2018 12:30 am CLINICAL HISTORY: Cough, difficulty breathing, flu-like symptoms COMPARISON: None. TECHNIQUE: PA and lateral views of the chest were obtained. FINDINGS: The lungs are underinflated. Patchy infiltrate is present in the medial left lung base. In terstitial markings overall are prominent. A mild peribronchial thickening pattern is present. Heart size is normal and central vasculature is within normal limits. No pleural effusion or pneu mothorax seen. No acute bony finding noted. No aortic abnormality. IMPRESSION: Small or early left lung base pneumonia. Overall prominent interstitial markings which may indicate a component of concurrent viral infiltrate .
== END 2018-09-15 02:25 | disposition home or self-care (01) ==
LOC: ER 23:38
DX: J40 Bronchitis, not specified as acute or chronic (principal); F17.210 Nicotine dependence, cigarettes, uncomplicated
CPT/HCPCS: 71046; 87804; 99284

== ENCOUNTER 2020-05-07 16:06 | Emergency (ER) | payer BC, OTHER ==
--- NOTE | 2020-05-07 17:39 | ER ---
Nurse's Notes [facility] Name: Louis Lagunas Jr Age: 29 yrs Sex: Male : 1990 Arrival Date: 05/07/2020 Time: 16:09 Bed 13 Private MD: Diagnosis: Achilles tendinitis Presentation: 05/07 16:24 Chief complaint: Patient states: pain to left heel X 2 weeks. Coronavirus screen: At iw this time, the client does not indicate any symptoms associated with coronavirus-19. Ebola Screen: Patient negative for fever greater than or equal to 101.5 degrees Fahrenheit, and additional compatible Ebola Virus Disease symptoms Patient denies exposure to infectious person. Patient denies travel to an Ebola-affected area in the 21 days before illness onset. No symptoms or risks identified at this time. Initial Sepsis Screen: Does the patient meet any 2 criteria? No. Patient's initial sepsis screen is negative. Does the patient have a suspected source of infection? No. Patient's initial sepsis screen is negative. Risk Assessment: Do you want to hurt yourself or someone else? Patient reports no desire to harm self or others. Onset of symptoms was April 25, 2020. 16:24 Method Of Arrival: Ambulatory iw 16:24 Acuity: POOL 4 iw Historical: - Allergies: 16:25 No Known Allergies; iw - Home Meds: 16:25 None [Active]; iw - PMHx: 16:25 None; iw - PSHx: 16:25 right leg; iw - Immunization history:: Adult Immunizations not up to date. - Social history:: Smoking status: Patient reports the use of cigarette tobacco products, smokes one pack cigarettes per day. Screenin:39 Abuse screen: Denies threats or abuse. Nutritional screening: No deficits noted. tw2 Tuberculosis screening: No symptoms or risk factors identified. Fall Risk None identified. Assessment: 16:39 General: Appears in no apparent distress. Behavior is calm, cooperative, appropriate tw2 for age. Pain: Complains of pain in left Achilles. Neuro: Level of Consciousness is awake, alert, obeys commands, Oriented to person, place, time, situation. Cardiovascular: Patient's skin is warm and dry. Respiratory: Airway is patent Respiratory effort is even, unlabored, Respiratory pattern is regular, symmetrical. GI: No signs and/or symptoms were reported involving the gastrointestinal system. : No signs and/or symptoms were reported regarding the genitourinary system. EENT: No signs and/or symptoms were reported regarding the EENT system. Derm: No signs and/or symptoms reported regarding the dermatologic system. Musculoskeletal: Reports pain in left Achilles pt states "basically when i straighten my left leg, the pain just kills me and its keeping me awake at night". 17:00 Reassessment: Patient appears in no apparent distress at this time. No changes from tw2 previously documented assessment. Patient and/or family updated on plan of care and expected duration. Pain level reassessed. Patient is alert, oriented x 3, equal unlabored respirations, skin warm/dry/pink. 17:52 Reassessment: Patient appears in no apparent distress at this time. No changes from tw2 previously documented assessment. Patient and/or family updated on plan of care and expected duration. Pain level reassessed. Patient is alert, oriented x 3, equal unlabored respirations, skin warm/dry/pink. Vital Signs: 16:25 BP 151 / 91; Pulse 78; Resp 16; Temp 98.4; Pulse Ox 98% on R/A; Weight 99.79 kg; Height iw 5 ft. 11 in. (180.34 cm); 17:00 BP 153 / 77; Pulse 70; Resp 16; Pulse Ox 100% on R/A; tw2 17:52 BP 144 / 79; Pulse 72; Resp 17; Pulse Ox 99% on R/A; tw2 16:25 Body Mass Index 30.68 (99.79 kg, 180.34 cm) ED Course: 16:09 Patient arrived in ED. ag5 16:16 Pelon Delgado PA is PHCP. jr8 16:16 Corey Bustamante MD is Attending Physician. jr8 16:24 Triage completed. iw 16:25 Arm band placed on. iw 16:39 Agnes Yeager, ARTURO is Primary Nurse. tw2 16:39 Bed in low position. Call light in reach. tw2 17:38 Nico Gillespie DPM is Referral Physician. jr8 17:53 No provider procedures requiring assistance completed. Patient did not have IV access tw2 during this emergency room visit. 17:56 XRAY Ankle LEFT 3 view In Process Unspecified. EDMS Administered Medications: No medications were administered Outcome: 17:39 Discharge ordered by . shorty 17:53 Discharged to home ambulatory. tw2 17:53 Condition: stable 17:53 Discharge instructions given to patient, Instructed on discharge instructions, follow up and referral plans. medication usage, Demonstrated understanding of instructions, follow-up care, medications, Prescriptions given X 1. 17:53 Patient left the ED. tw2 Signatures: Dispatcher [employer] EDNydia Farr RN RN Pelon Delgado PA PA jr8 Agnes Yeager RN RN tw2 Lety Lofton [facility]
--- NOTE | 2020-05-07 17:39 | EDPHYS ---
Physician Documentation [facility] Name: Louis Lagunas Jr Age: 29 yrs Sex: Male : 1990 Arrival Date: 05/07/2020 Time: 16:09 Bed 13 Private MD: ED Physician Corey Bustamante HPI: 05/07 16:48 This 29 yrs old Male presents to ER via Ambulatory with complaints of Ankle jr8 Injury, Foot Pain. 16:48 Onset: The symptoms/episode began/occurred gradually, 2 day(s) ago. Associated signs jr8 and symptoms: The patient has no apparent associated signs or symptoms. Modifying factors: The symptoms are alleviated by nothing, the symptoms are aggravated by movement. Severity of symptoms: At their worst the symptoms were moderate, in the emergency department the symptoms are unchanged. The patient has not experienced similar symptoms in the past. The patient has not recently seen a physician. Patient stated that he rolled his ankle about a month ago. Stated that over the past couple of days started to have heel pain that when he extends his leg feels that his heel is tearing apart from the inside out. Denies recent trauma . Historical: - Allergies: 16:25 No Known Allergies; iw - Home Meds: 16:25 None [Active]; iw - PMHx: 16:25 None; iw - PSHx: 16:25 right leg; iw - Immunization history:: Adult Immunizations not up to date. - Social history:: Smoking status: Patient reports the use of cigarette tobacco products, smokes one pack cigarettes per day. ROS: 16:48 Eyes: Negative for injury, pain, redness, and discharge, ENT: Negative for injury, jr8 pain, and discharge, Neck: Negative for injury, pain, and swelling, Cardiovascular: Negative for chest pain, palpitations, and edema, Respiratory: Negative for shortness of breath, cough, wheezing, and pleuritic chest pain, Abdomen/GI: Negative for abdominal pain, nausea, vomiting, diarrhea, and constipation, Back: Negative for injury and pain, Skin: Negative for injury, rash, and discoloration, Neuro: Negative for headache, weakness, numbness, tingling, and seizure. 16:48 MS/extremity: Positive for pain, tenderness, of the left foot and left Achilles. Exam: 16:48 Constitutional: This is a well developed, well nourished patient who is awake, alert, jr8 and in no acute distress. Cardiovascular: Regular rate and rhythm with a normal S1 and S2. No gallops, murmurs, or rubs. Normal PMI, no JVD. No pulse deficits. Respiratory: Lungs have equal breath sounds bilaterally, clear to auscultation and percussion. No rales, rhonchi or wheezes noted. No increased work of breathing, no retractions or nasal flaring. Skin: Warm, dry with normal turgor. Normal color with no rashes, no lesions, and no evidence of cellulitis. Neuro: Awake and alert, GCS 15, oriented to person, place, time, and situation. Cranial nerves II-XII grossly intact. Motor strength 5/5 in all extremities. Sensory grossly intact. Cerebellar exam normal. Normal gait. 16:48 Musculoskeletal/extremity: Extremities: grossly normal except: noted in the left heel : Patient has pain and tenderness to the insertion site of the left Achilles at the heel. No swelling or trauma noted. Negative Burleson test. Full ROM noted both passive and active , Circulation is intact in all extremities. Sensation intact. Vital Signs: 16:25 BP 151 / 91; Pulse 78; Resp 16; Temp 98.4; Pulse Ox 98% on R/A; Weight 99.79 kg; Height iw 5 ft. 11 in. (180.34 cm); 17:00 BP 153 / 77; Pulse 70; Resp 16; Pulse Ox 100% on R/A; tw2 17:52 BP 144 / 79; Pulse 72; Resp 17; Pulse Ox 99% on R/A; tw2 16:25 Body Mass Index 30.68 (99.79 kg, 180.34 cm) iw MDM: 16:16 Patient medically screened. jr8 17:40 Data reviewed: vital signs, nurses notes, radiologic studies, plain films, and as a jr8 result, I will discharge patient. Data interpreted: Pulse oximetry: on room air is 100 %. Interpretation: normal. Counseling: I had a detailed discussion with the patient and/or guardian regarding: the historical points, exam findings, and any diagnostic results supporting the discharge/admit diagnosis, radiology results, the need for outpatient follow up, a barge hand, to return to the emergency department if symptoms worsen or persist or if there are any questions or concerns that arise at home. 05/07 16:48 Order name: XRAY Ankle LEFT 3 view jr8 Administered Medications: No medications were administered Disposition: 19:01 Co-signature as Attending Physician, Corey Bustamante MD. rn Disposition: 05/07/20 17:39 Discharged to Home. Impression: Achilles tendinitis. - Condition is Stable. - Discharge Instructions: Partial (Incomplete) Achilles Tendon Rupture. - Prescriptions for meloxicam 15 mg Oral tablet - take 1 tablet by ORAL route once daily As needed; 20 tablet. - Medication Reconciliation Form, Thank You Letter, Antibiotic Education, Prescription Opioid Use, Work release form form. - Follow up: Nico Gillespie DPM; When: 2 - 3 days; Reason: Recheck today's complaints, Continuance of care, Re-evaluation by your physician. - Problem is new. - Symptoms are unchanged. Signatures: Dispatcher [employer] EDNydia Farr RN RN iw Nieto, Roman, MD MD rn Roszak, Josh, PA PA jr8 Agnes Yeager RN RN tw2 Corrections: (The following items were deleted from the chart) 17:53 17:39 05/07/2020 17:39 Discharged to Home. Impression: Achilles tendinitis. Condition tw2 is Stable. Forms are Work release form, Medication Reconciliation Form, Thank You Letter, Antibiotic Education, Prescription Opioid Use. Follow up: Dr. Nico Gillespie; When: 2 - 3 days; Reason: Recheck today's complaints, Continuance of care, Re-evaluation by your physician. Problem is new. Symptoms are unchanged. jr8
[2020-05-07 18:04] VITALS: TEMP 98.4
[2020-05-07 18:08] VITALS: BP 144/79; O2SAT 99
--- NOTE | 2020-05-07 18:26 | RAD REPORT ---
EXAM DESCRIPTION: RAD - Ankle Left 3 View - 05/07/2020 5:55 pm CLINICAL HISTORY: PAIN COMPARISON: No comparisons FINDINGS: No acute fracture or dislocation seen. Small plantar calcaneal spur.
== END 2020-05-07 17:53 | disposition home or self-care (01) ==
LOC: ER 16:06
DX: M76.62 Achilles tendinitis, left leg (principal); F17.210 Nicotine dependence, cigarettes, uncomplicated
CPT/HCPCS: 99283

== ENCOUNTER 2021-02-15 20:12 | Emergency (ER) | payer BC ==
--- NOTE | 2021-02-15 22:30 | ER ---
Nurse's Notes [facility] Name: Louis Lagunas Jr Age: 30 yrs Sex: Male : 1990 Arrival Date: 02/15/2021 Time: 20:15 Bed External Waiting Private MD: Diagnosis: Presentation: 02/15 21:08 Chief complaint: Patient states: nasal congestion, runny nose, sore throat, and body em aches since . Coronavirus screen: Client denies travel out of the [place] in the last 14 days. Ebola Screen: Patient negative for fever greater than or equal to 101.5 degrees Fahrenheit, and additional compatible Ebola Virus Disease symptoms Patient denies exposure to infectious person. Patient denies travel to an Ebola-affected area in the 21 days before illness onset. No symptoms or risks identified at this time. Initial Sepsis Screen: Does the patient meet any 2 criteria? No. Patient's initial sepsis screen is negative. Does the patient have a suspected source of infection? No. Patient's initial sepsis screen is negative. Risk Assessment: Do you want to hurt yourself or someone else? Patient reports no desire to harm self or others. Onset of symptoms was February 15, 2021. 21:08 Method Of Arrival: Ambulatory em 21:08 Acuity: POOL 4 em Historical: - Allergies: 21:09 No Known Allergies; em - PMHx: 21:09 None; em - PSHx: 21:09 None; em - Immunization history:: Adult Immunizations up to date. - Social history:: Smoking status: Patient denies any tobacco usage or history of. Vital Signs: 21:08 BP 138 / 90; Pulse 78; Resp 18; Temp 97.1; Pulse Ox 99% on R/A; Weight 111.13 kg; em Height 5 ft. 11 in. (180.34 cm); 21:08 Body Mass Index 34.17 (111.13 kg, 180.34 cm) em ED Course: 20:15 Patient arrived in ED. cf2 21:09 Triage completed. em 21:09 Arm band placed on. em 21:58 Cesar Saavedra MD is Attending Physician. pkl 21:58 Saida Reynolds, ARTURO is Primary Nurse. ca1 Administered Medications: No medications were administered Outcome: 22:29 Patient left the ED. em Signatures: Cesar Saavedra MD MD pkl Munoz, Edgar, RN RN em Saida Reynolds RN RN [facility]
[2021-02-15 22:41] VITALS: BP 138/90; TEMP 97.1; O2SAT 99
== END 2021-02-15 22:29 | disposition left against medical advice (07) ==
LOC: ER 20:12
DX: Z53.21 Procedure and treatment not carried out due to patient leaving prior to being seen by health care provider (principal)
CPT/HCPCS: 99281